=== PATIENT | male | born 1950 | race Caucasian/White ===

== ENCOUNTER 2022-04-07 06:49 | Day surgery (SDC) | payer OTHER ==
[2022-04-04 16:42] LABS: Absolute Lymphocytes (CBC) 2.4 K/uL (0.7-4.9); Hematocrit 46.2 % (39.6-49.0); MCV 83.5 fL (80-100); MPV 6.9 fL (7.6-11.3); RBC Red Blood Cell Count 5.53 M/uL (4.33-5.43)
[2022-04-04 16:47] LABS: Potassium 4.3 mmol/L (3.5-5.1)
[2022-04-04 17:07] LABS: SARS-CoV-2 Antigen Rapid Res Negative (Negative)
--- NOTE | 2022-04-05 17:10 | EKG ---
Test Date: 2022-04-04 Test Time: 15:55:07 Aquatics Specialist: SHARONDA MEASUREMENT RESULTS: Intervals: Rate: 72 CO: 170 QRSD: 84 QT: 390 QTc: 427 [place]: P: 77 CO: 170 QRS: -71 T: 56 INTERPRETIVE STATEMENTS: Normal sinus rhythm Left axis deviation Low voltage QRS Cannot rule out Anterior infarct, age undetermined Abnormal ECG Compared to ECG 04/03/2015 05:47:18 No significant changes Electronically Signed On 04-05-22 17:06:51 CDT by Dong Davis
[2022-04-07] MEDS ORDERED: BUPIVACAINE 0.5% PF 10 ML VIAL ONE (07:09)
[2022-04-07] MEDS ORDERED: CEFAZOLIN SODIUM 1 GM/VIAL ONE (07:21)
[2022-04-07] MEDS ORDERED: Ringers Lactate 1,000 ML IV ONE (07:21)
[2022-04-07] MEDS ORDERED: propofoL 200 MG/20 ML VIAL IV ONE (08:25)
[2022-04-07] MEDS ORDERED: LIDOCAINE 1% MPF 5 ML VIAL ONE (08:25)
[2022-04-07] MEDS ORDERED: MIDAZOLAM HCL 2 MG/2 ML INJ ONE (08:25)
[2022-04-07] MEDS ORDERED: FENTANYL CITR 100 MCG/2 ML ONE ×2 (08:25→08:36)
[2022-04-07] MEDS ORDERED: NS 0.9% VIAL 10 ML ONE (08:44)
[2022-04-07] MEDS ORDERED: ONDANSETRON 4 MG/2 ML VIAL ONE (09:06)
[2022-04-07] MEDS ORDERED: KETOROLAC 30 MG/ML INJ ONE (09:07)
--- NOTE | 2022-04-07 09:35 | P.OP ---
Date of Service: 04/07/22 Preop diagnosis: Bilateral peroneal hidradenitis suppurativa Postop diagnosis: Same Procedure performed: Wide excision left groin hidradenitis suppurativa 10 x 4 cm with layered closure, wide excision right groin hidradenitis suppurativa 10 x 4 cm with layered closure. Surgeon: Zachariah Carroll MD [employer]: CARMENZA Menjivar Estimated blood loss: Minimal Specimen: Bilateral groin hidradenitis suppurativa Findings: As above Anesthesia: General Complications: None Drains: Quarter-inch Yessi drains Fluids and blood products: Nonapplicable Disposition: Recovery room Operative note: Patient brought to the OR and placed in the supine position. General anesthesia begun. Patient placed in the lithotomy position and then pr epped and draped in the usual sterile fashion. Marcaine 0.5% infiltrated in both perineal groin region where hidradenitis suppurativa was present. Then 15 blade was used to make two 10 x 4 cm incisions in both groin region. Subcutaneous tissue divided. All inflamed and indurated tissue excised. Specimen sent to pathology. Wound irrigated bleeding controlled cautery. Flaps created. Quarter inch Ralph drain placed and secured with 3-0 nylon in each wound. 0 chromic used to reapproximate subcutaneous tissue. 3-0 nylon used to close skin. Sterile dressing applied. Patient awakened and taken to recovery room in good general condition. CC:
[2022-04-07] MEDS ORDERED: HYDROCODONE/APAP 7.5/325 MG TAB PO PRN (09:37)
[2022-04-07] MEDS ORDERED: HYDROCODONE/APAP 7.5/325 MG TAB ONE (10:56)
[2022-04-07 11:54] VITALS: BP 127/51; TEMP 97; O2SAT 95
== END 2022-04-07 11:15 | disposition home or self-care (01) ==
LOC: OR 06:49
PROVIDERS: ATTEND Surgery
PROC: 0JBC0ZZ Excision of Pelvic Region Subcutaneous Tissue and Fascia, Open Approach (ICD-10-PCS; principal; 2022-04-07 08:15)
DX: L73.2 Hidradenitis suppurativa (principal); Z20.822 Contact with and (suspected) exposure to COVID-19
CPT/HCPCS: 93005; 85025; 80048; 36415; 88304; 87811; 11462; J2704; J2001; J2250; J3010 ×2; A4216; J7120; J2405; J0690

== ENCOUNTER 2024-05-09 19:16 | Emergency (ER) | payer OTHER ==
--- OUTSIDE RECORDS SUMMARY | 2024-05-09 19:19 | XMS REPORT | Continuity of Care Document ---
Author Name Unknown Address [address] [place] [address] thconnect Address [address] [place] [address] Care Team Providers Care Sales Mgr Name Role Phone Ashleigh Powers Attending Clinician Unavailable Encounters Start Date/Time End Date/Time Encounter Type Admission Type Attending Clinicians Care Facility Care Department Encounter ID Source 2021-08-17 11:22:29 Outpatient Ashleigh Powers [facility] [id number] [facility]
[2024-05-09] MEDS ORDERED: MECLIZINE HCL 12.5 MG TAB ONE (19:41)
[2024-05-09] MEDS ORDERED: AMOX/K CLAV 875 MG TAB ONE (19:42)
--- NOTE | 2024-05-09 20:07 | RAD REPORT ---
EXAM: CT brain without contrast HISTORY: Dizziness COMPARISON: 2014 TECHNIQUE: Multiple contiguous axial images were obtained and a CT of the brain without contrast.. Sagittal and coronal reconstruction performed. Automated exposure control, adjustment of the mA and/or kV according to patient size, and/or iterative reconstruction. Unless otherwise specified, incidental f indings do not require dedicated imaging follow-u FINDINGS: An intracranial bleed is not seen Ventricles are normal caliber No extra-axial fluid collection noted Mild low-density within white matter probably ischemic No fluid within the visualized sinuses or mastoids noted. IMPRESSION: No acute intracranial abnormality noted. If the patient's symptoms persist MRI of the brain would be recommended.
[2024-05-09 20:18] LABS: Absolute Basophils 0.1 K/uL (0-0.5); Absolute Eosinophils 0.1 K/uL (0-0.5); Absolute Monocytes 0.6 K/uL (0.1-1.3); Absolute Neutrophil 8.6 K/uL (1.8-8.0); Basophils % 0.7 % (0-1.3); Eosinophils % 0.6 % (0-4.4); Hematocrit 47.2 % (39.6-49.0); Hemoglobin 15.8 g/dL (13.6-17.9); Lymphocytes % 17.5 % (15.3-44.8); MCH 27.7 pg (27.0-35.0); MCHC 33.5 g/dL (32.0-36.0); MCV 82.6 fL (80-100); MPV 6.6 fL (7.6-11.3); Monocytes % 5.5 % (3.3-12.3); Neutrophils % 75.7 % (41.7-73.7); Nucleated Red Blood Cells % 0.1 % (0-0); Platelets 226 thou/uL (152-406); RBC Red Blood Cell Count 5.71 M/uL (4.33-5.43); Red Cell Distribution Width 15.6 % (12.1-15.2)
[2024-05-09 20:38] LABS: Albumin 3.5 g/dL (3.4-5.0); Albumin/Globulin Ratio 0.8 (1.1-1.8); Anion Gap 6.7 mEq/L (5.0-15.0); Bilirubin Total 0.6 mg/dL (0.2-1.0); Globulin 4.2 g/dL (2.3-3.5); Protein, Total 7.7 g/dL (6.4-8.2); Troponin High Sensitivity 5.3 pg/mL (<58.9)
[2024-05-09 20:39] LABS: Potassium 4.7 mEq/L (3.5-5.1)
--- NOTE | 2024-05-09 21:07 | ER ---
Nurse's Notes [facility] [place], [place] Name: Wesly Jean Age: 74 yrs Sex: Male : 1950 Arrival Date: 05/09/2024 Time: 19:16 Bed 6 Private MD: REGGIE ROUSE Diagnosis: Benign paroxysmal vertigo, bilateral;Acute suppurative otitis media without spontaneous rupture of ear drum, left ear Presentation: 05/09 19:22 Chief complaint: Patient states: started 1 hour ago, dizziness, difficult to hear out tm6 of left ear, left arm hurting slightly. Coronavirus screen: Client denies travel out of the [place] in the last 14 days. Ebola Screen: Patient negative for fever greater than or equal to 101.5 degrees Fahrenheit, and additional compatible Ebola Virus Disease symptoms Patient denies exposure to infectious person. Patient denies travel to an Ebola-affected area in the 21 days before illness onset. No symptoms or risks identified at this time. Initial Sepsis Screen: Does the patient meet any 2 criteria? No. Patient's initial sepsis screen is negative. Does the patient have a suspected source of infection? No. Patient's initial sepsis screen is negative. Risk Assessment: Do you want to hurt yourself or someone else? Patient reports no desire to harm self or others. Onset of symptoms was May 09, 2024 at 18:30. 19:22 Method Of Arrival: Wheelchair tm6 19:22 Acuity: TRISTAN 3 tm6 Triage Assessment: 19:24 General: Appears in no apparent distress. Behavior is calm, cooperative. Pain: tm6 Complains of pain in left arm Pain currently is 1 out of 10 on a pain scale. Pain began 1 hour ago. EENT: Reports cannot hear out of left ear, "feels like a stopper in there". Neuro: Level of Consciousness is awake, alert, obeys commands, Oriented to person, place, time, situation, Reports dizziness, since 1 hour ago. Cardiovascular: Patient's skin is warm and dry. Respiratory: Airway is patent Respiratory effort is even, unlabored, Respiratory pattern is regular, symmetrical. GI: No signs and/or symptoms were reported involving the gastrointestinal system. Abdomen is round non-distended. : No signs and/or symptoms were reported regarding the genitourinary system. Derm: No signs and/or symptoms reported regarding the dermatologic system. Musculoskeletal: Reports pain in left arm since 1 hour ago. Pain is 1 out of 10 on a pain scale. Historical: - Allergies: 19:24 No Known Allergies; tm6 - PMHx: 19:24 None; tm6 - PSHx: 19:24 Cholecystectomy; tm6 - Immunization history:: Client reports receiving the 2nd dose of the Covid vaccine, Flu vaccine is not up to date. - Infectious Disease History:: Denies. - Social history:: Smoking status: Patient reports the use of cigarette tobacco products, smokes two packs cigarettes per day. Patient/guardian denies using alcohol. - Family history:: not pertinent. Screenin:38 [facility] ED Fall Risk Assessment (Adult) History of falling in the last 3 months, tm6 including since admission No falls in past 3 months (0 pts) Confusion or Disorientation No (0 pts) Intoxicated or Sedated No (0 pts) Impaired Gait Yes (1 pt) Mobility Assist Device Used Yes (1 pt) Altered Elimination No (0 pt) Score/Fall Risk Level 0 - 2 = Low Risk Oriented to surroundings, Maintained a safe environment, Educated pt \\T\\ family on fall prevention, incl call for assistance when getting out of bed. Abuse screen: Denies threats or abuse. Denies injuries from another. Nutritional screening: No deficits noted. Tuberculosis screening: No symptoms or risk factors identified. Assessment: 19:38 Reassessment: see triage assessment. tm6 20:43 Reassessment: Patient appears in no apparent distress at this time. Patient and/or vc1 family updated on plan of care and expected duration. Pain level reassessed. Patient is alert, oriented x 3, equal unlabored respirations, skin warm/dry/pink. Patient states feeling better. Patient states symptoms have improved. General: Appears in no apparent distress. comfortable, Behavior is calm, cooperative, appropriate for age. Pain: Complains of pain in left ear. Neuro: Rosen Agitation-Sedation Scale (RASS): 0 - Alert and Calm Level of Consciousness is awake, alert, obeys commands, Denies dizziness. Neuro: Reports dizziness and blurred vision has resolved. Cardiovascular: Heart tones S1 S2 present Capillary refill < 3 seconds Patient's skin is warm and dry. Respiratory: Airway is patent Respiratory effort is even, unlabored, Respiratory pattern is regular, symmetrical, Breath sounds are diminished bilaterally. GI: No deficits noted. No signs and/or symptoms were reported involving the gastrointestinal system. : No deficits noted. No signs and/or symptoms were reported regarding the genitourinary system. EENT: Reports pain in left ear. Derm: Skin is intact, is healthy with good turgor, Skin is dry, Skin is normal, Skin temperature is warm. Musculoskeletal: No deficits noted. No signs and/or symptoms reported regarding the musculoskeletal system. Vital Signs: 19:21 BP 119 / 62; Pulse 75; Resp 19; Temp 97.9(O); Pulse Ox 96% on R/A; MAP 78 mmHg; Weight tm6 95.71 kg; Height 5 ft. 6 in. ; Pain 0/10; 20:45 BP 112 / 56; Pulse 74; Resp 19; Pulse Ox 99% ; vc1 19:21 Body Mass Index 34.06 (95.71 kg, 167.64 cm) tm6 19:21 Pain Scale: Adult tm6 ED Course: 19:17 Patient arrived in ED. am2 19:18 REGGIE ROUSE is Private Physician. am2 19:24 Triage completed. tm6 19:24 Arm band placed on left wrist. tm6 19:37 Tra Keith MD is Attending Physician. rt 19:38 Patient has correct armband on for positive identification. Provided Education on: plan tm6 of care. 19:58 CT Head Brain wo Cont In Process Unspecified. EDMS 20:14 EKG done, by ED staff, reviewed by Tra Keith MD. Inserted saline lock: 20 gauge tm6 in right antecubital area, using aseptic technique. Blood collected. Flushed with 10 mL NS. 20:14 Troponin High Sensitivity Sent. tm6 20:14 CMP Sent. tm6 20:14 CBC with Diff Sent. tm6 20:15 Attending Physician role handed off by Tra Keith MD sp4 20:15 Jonathan Chin MD is Attending Physician. sp4 21:05 Maday Laureano MD is Referral Physician. sp4 21:10 No provider procedures requiring assistance completed. IV discontinued, intact, vc1 bleeding controlled, No redness/swelling at site. Pressure dressing applied. Administered Medications: 19:43 Drug: Meclizine PO 50 mg PO once Route: PO; tm6 20:13 Follow up: Response: No adverse reaction; Marked relief of symptoms vc1 19:43 Drug: Amoxicillin-Clavulanate PO 875 mg PO once Route: PO; tm6 20:13 Follow up: Response: No adverse reaction; Marked relief of symptoms vc1 Medication: 19:38 VIS not applicable for this client. tm6 Outcome: 21:07 Discharge ordered by . sp4 21:12 Patient left the ED. vc1 21:18 Discharged to home ambulatory, with significant other, vc1 21:18 Condition: improved 21:18 Discharge instructions given to patient, Instructed on discharge instructions, follow up and referral plans. medication usage, Demonstrated understanding of instructions, follow-up care, medications, Prescriptions given X 2, Signatures: Dispatcher [employer] Anh Carbajal Vanessa, RN RN vc1 Tra Keith MD MD rt Jonathan Chin MD MD sp4 Danitza Smith RN RN tm6 Corrections: (The following items were deleted from the chart) 19:25 19:24 PSHx: None; tm6 tm6
--- NOTE | 2024-05-09 21:07 | EDPHYS ---
Physician Documentation [facility] Name: Wesly Jean Age: 74 yrs Sex: Male : 1950 Arrival Date: 05/09/2024 Time: 19:16 Bed 6 Private MD: REGGIE ROUSE ED Physician Jonathan Chin HPI: 05/09 20:15 This 74 yrs old Male presents to ER via Wheelchair with complaints of sp4 Dizziness, Arm Pain, Ear Pain. 20:32 Patient presents to the ED with an acute onset of dizziness described as room spinning rt as well as nausea and vomiting and fullness to the left ear starting about an hour prior to arrival. Patient is never had similar symptoms previously. Denies other acute complaints at this time, symptoms are moderate in severity, no other aggravating or alleviating factors.. Historical: - Allergies: 19:24 No Known Allergies; tm6 - PMHx: 19:24 None; tm6 - PSHx: 19:24 Cholecystectomy; tm6 - Immunization history:: Client reports receiving the 2nd dose of the Covid vaccine, Flu vaccine is not up to date. - Infectious Disease History:: Denies. - Social history:: Smoking status: Patient reports the use of cigarette tobacco products, smokes two packs cigarettes per day. Patient/guardian denies using alcohol. - Family history:: not pertinent. ROS: 20:32 Constitutional: Negative for fever, chills, and weight loss, Cardiovascular: Negative rt for chest pain, palpitations, and edema, Respiratory: Negative for shortness of breath, cough, wheezing, and pleuritic chest pain, MS/Extremity: Negative for injury and deformity, Skin: Negative for injury, rash, and discoloration, 20:32 Abdomen/GI: Positive for nausea and vomiting, 20:32 Neuro: Positive for dizziness, Negative for loss of consciousness, Exam: 20:32 Constitutional: This is a well developed, well nourished patient who is awake, alert, rt and in no acute distress. Head/Face: Normocephalic, atraumatic. Chest/axilla: Normal chest wall appearance and motion. Nontender with no deformity. No lesions are appreciated. Cardiovascular: Regular rate and rhythm with a normal S1 and S2. No gallops, murmurs, or rubs. Normal PMI, no JVD. No pulse deficits. Respiratory: Lungs have equal breath sounds bilaterally, clear to auscultation and percussion. No rales, rhonchi or wheezes noted. No increased work of breathing, no retractions or nasal flaring. Abdomen/GI: Soft, non-tender, with normal bowel sounds. No distension or tympany. No guarding or rebound. No evidence of tenderness throughout. Skin: Warm, dry with normal turgor. Normal color with no rashes, no lesions, and no evidence of cellulitis. 20:32 ENT: Bilateral TM effusion with exudate. 20:32 ECG was reviewed by the Attending Physician. 20:32 Neuro: 2-3 beats of left going nystagmus, head impulse and test of skew negative, strength and sensation intact in upper lower extremities, no ataxia. Nose, cranial nerves II through XII intact, speech normal, Vital Signs: 19:21 BP 119 / 62; Pulse 75; Resp 19; Temp 97.9(O); Pulse Ox 96% on R/A; MAP 78 mmHg; Weight tm6 95.71 kg; Height 5 ft. 6 in. ; Pain 0/10; 20:45 BP 112 / 56; Pulse 74; Resp 19; Pulse Ox 99% ; vc1 19:21 Body Mass Index 34.06 (95.71 kg, 167.64 cm) tm6 19:21 Pain Scale: Adult tm6 MDM: 19:37 Medical Screening Exam initiated rt 23:18 Differential diagnosis: generalized weakness, head injury, hyperventilation, sp4 hypovolemia, syncope. Data reviewed: vital signs, nurses notes, lab test result(s), radiologic studies, CT scan. ED course: Patient states his vertigo has resolved. Stable for discharge home. 05/09 19:38 Order name: CBC with Diff; Complete Time: 20:54 rt 05/09 19:38 Order name: CMP; Complete Time: 20:54 rt 05/09 19:38 Order name: Troponin High Sensitivity; Complete Time: 20:54 rt 18 19:38 Order name: CT Head Brain wo Cont; Complete Time: 20:54 rt 18 19:38 Order name: EKG - Nurse/Tech; Complete Time: 20:14 rt EC:32 Rate is 74 beats/min. Rhythm is regular, Sinus Rhythm with No ectopy. Left axis rt deviation noted. UT interval is normal. QRS interval is normal. QT interval is normal. No Q waves. No ST changes noted. Interpreted by me. Administered Medications: 19:43 Drug: Meclizine PO 50 mg PO once Route: PO; tm6 20:13 Follow up: Response: No adverse reaction; Marked relief of symptoms vc1 19:43 Drug: Amoxicillin-Clavulanate PO 875 mg PO once Route: PO; tm6 20:13 Follow up: Response: No adverse reaction; Marked relief of symptoms vc1 Disposition Summary: 05/09/24 21:07 Discharge Ordered Notes: Location: Home sp4 Problem: new sp4 Symptoms: have improved sp4 Condition: Stable sp4 Diagnosis - Benign paroxysmal vertigo, bilateral sp4 - Acute suppurative otitis media without spontaneous rupture of ear drum, left ear sp4 Followup: sp4 - With: Maday Laureano MD - When: 7 - 10 days - Reason: Recheck today's complaints Discharge Instructions: - Discharge Summary Sheet sp4 - Benign Positional Vertigo sp4 Forms: - Patient Portal Instructions sp4 Prescriptions: - Augmentin 875-125 mg Oral Tablet - take 1 tablet ORAL route every 12 hours for 10 days; 20 tablet; Refills: 0, sp4 Product Selection Permitted - Meclizine 25 mg Oral tablet - take 1 tablet ORAL route every 8 hours As needed PRN vertigo; 30 tablet; sp4 Refills: 0, Product Selection Permitted Signatures: Dispatcher [employer] EDMS Tra Keith MD MD rt Jonathan Chin MD MD sp4 Danitza Smith RN RN tm6 Eufemia Baugh RN vc1 Corrections: (The following items were deleted from the chart) 19:25 19:24 PSHx: None; tm6 tm6 19:38 19:38 Head Brain Wo Cont+CT.RAD.BRZ ordered. EDMS EDMS
[2024-05-10 03:06] VITALS: TEMP 97.9
[2024-05-10 03:07] VITALS: BP 112/56; O2SAT 99
--- NOTE | 2024-05-13 13:02 | EKG ---
Test Date: 2024-05-09 Test Time: 20:04:20 Document Image Technician: JOSE MEASUREMENT RESULTS: Intervals: Rate: 74 NV: 168 QRSD: 96 QT: 408 QTc: 452 [place]: P: 10 NV: 168 QRS: -70 T: 19 INTERPRETIVE STATEMENTS: Normal sinus rhythm with sinus arrhythmia Left axis deviation Low voltage QRS Inferior infarct, age undetermined Abnormal ECG Compared to ECG 04/04/2022 15:55:07 No significant changes Electronically Signed On 05-13-24 12:52:56 CDT by Frankie Hope
== END 2024-05-09 21:12 | disposition home or self-care (01) ==
LOC: ER 19:16
DX: H81.13 Benign paroxysmal vertigo, bilateral (principal); H66.002 Acute suppurative otitis media without spontaneous rupture of ear drum, left ear; F17.210 Nicotine dependence, cigarettes, uncomplicated
CPT/HCPCS: 93005; 85025; 36415; 84484; 80053; 70450; 99284; J8597

== ENCOUNTER 2024-08-30 07:53 | Emergency (ER) | payer OTHER ==
--- OUTSIDE RECORDS SUMMARY | 2024-08-30 07:56 | XMS REPORT | Continuity of Care Document ---
Author Name Unknown Address [address] [place] [address] [employer]connect [address] [place] [address] Care Team Providers Care Roll Over Loader Name Role Phone Ashleigh Powers Attending Clinician Unavailable Encounters Start Date/Time End Date/Time Encounter Type Admission Type Attending Clinicians Care Facility Care Department Encounter ID Source 2021-08-17 11:22:29 Outpatient Ashleigh Powers [facility] [id number] [facility]
[2024-08-30] MEDS ORDERED: METHYLPREDNISOLONE 125 MG INJ ONE (08:15)
[2024-08-30] MEDS ORDERED: BENZONATATE 100 MG CAP PO ONE (08:15)
--- NOTE | 2024-08-30 08:27 | RAD REPORT ---
EXAM: Chest Single View HISTORY: COUGH COMPARISON: 06/08/2022 FINDINGS: LUNGS/PLEURA: Linear scarring at the left lung base. MEDIASTINUM: The mediastinal silhouette is within normal limits. CARDIAC: The cardiac silhouette is within normal limits. UPPER ABDOMEN: No significant abnormality. BONES: No acute abnormality. LINES/TUBES/OTHER: N/A IMPRESSION: No evidence of acute cardiopulmonary disease.
[2024-08-30 08:42] LABS: Absolute Lymphocytes (CBC) 0.7 K/uL (0.7-4.9); Absolute Monocytes 0.8 K/uL (0.1-1.3); Absolute Neutrophil 4.6 K/uL (1.8-8.0); Basophils % 0.4 % (0-1.3); Hematocrit 46.1 % (39.6-49.0); Hemoglobin 15.4 g/dL (13.6-17.9); Lymphocytes % 12.1 % (15.3-44.8); MCH 28.2 pg (27.0-35.0); MCHC 33.5 g/dL (32.0-36.0); MCV 84.3 fL (80-100); MPV 6.9 fL (7.6-11.3); Neutrophils % 74.5 % (41.7-73.7); Nucleated Red Blood Cells % 0.3 % (0-0); Platelets 154 thou/uL (152-406); RBC Red Blood Cell Count 5.47 M/uL (4.33-5.43)
[2024-08-30 08:55] LABS: Anion Gap 10.2 mEq/L (5.0-15.0); Potassium 4.2 mEq/L (3.5-5.1)
[2024-08-30 08:58] LABS: SARS-CoV-2 Antigen CONTROL BLUE LINE VIS/BG OK; SARS-CoV-2 Antigen Rapid Res Negative (Negative)
--- NOTE | 2024-08-30 09:26 | EDPHYS ---
Physician Documentation [facility] Name: Wesly Jean Age: 74 yrs Sex: Male : 1950 Arrival Date: 08/30/2024 Time: 07:53 Bed 14 Private MD: ED Physician Kalyan Hall HPI: 08/30 08:11 This 74 yrs old Male presents to ER via Ambulatory with complaints of Flu ec2 Symptoms. 08:11 Patient arrives today for evaluation of upper respiratory symptoms. Patient reports ec2 that he has been having cough and congestion, decreased p.o. intake, diarrhea. Patient reports feeling unwell. Reports that he smokes regularly.. Historical: - Allergies: 08:06 No Known Allergies; ss - Home Meds: 08:06 None [Active]; ss - PMHx: 08:06 "Had diabetes, but that's gone."; ss - PSHx: 08:06 Cholecystectomy; ss - Immunization history:: Adult Immunizations unknown. - Infectious Disease History:: Denies. - Social history:: Smoking status: Patient reports the use of cigarette tobacco products, smokes one pack cigarettes per day. ROS: 08:11 Constitutional: as per hpi ec2 Exam: 08:11 Constitutional: GEN: NAD Head: atraumatic Eyes: EOMI Ears: External ears are ec2 normal. CV: regular rate LUNGS: no respiratory distress no wheezes or rales or rhonchi ABD: non-distended SKIN: no evidence of rashes MSK: no evidence of trauma Vital Signs: 08:03 BP 92 / 70; Pulse 89; Resp 19; Temp 98.8(O); Pulse Ox 90% on R/A; Height 5 ft. 6 in. ; ss 08:45 BP 107 / 70; Pulse 78; Resp 20; Pulse Ox 91% on R/A; ph 09:40 BP 105 / 72; Pulse 76; Resp 18; Temp 98.7; Pulse Ox 92% on R/A; ph MDM: 07:56 Medical Screening Exam initiated ec2 08:11 Data reviewed: vital signs, nurses notes. ED course: Patient arrives today for ec2 evaluation of URI symptoms. Examination is unrevealing. Will obtain lab work, chest x-ray, give the patient medications to help symptomatically get the patient feeling better. Suspect upper respiratory infection, additionally considered other process such as pneumonia, dehydration.. 09:24 ED course: Patient is flu positive. Will treat the patient with Tamiflu given the ec2 patient's comorbidities, reports only a history of diabetes better however he is a heavy smoker.. 02 08:06 Order name: CBC with Diff; Complete Time: 08:54 ec2 02 08:06 Order name: BMP; Complete Time: 09:24 ec2 08 08:06 Order name: Influenza Screen (a \\T\\ B); Complete Time: 09:24 ec2 02 08:06 Order name: SARS RAPID; Complete Time: 09:24 ec2 0208 08:06 Order name: CXR XRAY; Complete Time: 08:29 ec2 08/30 08:06 Order name: IV; Complete Time: 08:49 ec2 Administered Medications: 08:48 Drug: MethylPrednisoLONE IVP 125 mg IVP once Route: IVP; Site: right antecubital; ph 09:40 Follow up: Response: No adverse reaction ph 08:49 Drug: Tessalon Perle PO 200 mg PO once Route: PO; ph 09:39 Follow up: Response: No adverse reaction ph Disposition Summary: 08/30/24 09:25 Discharge Ordered Notes: Location: Home ec2 Condition: Stable ec2 Diagnosis - Influenza due to identified novel influenza A virus ec2 Followup: ec2 - With: Private Physician - When: - Reason: Re-evaluation by your physician Discharge Instructions: - Discharge Summary Sheet ec2 - Influenza, Adult ec2 Forms: - Medication Reconciliation Form ec2 - Antibiotic Education ec2 - Prescription Opioid Use ec2 - Patient Portal Instructions ec2 - Leadership Thank You Letter ec2 Prescriptions: - Tamiflu 75 mg Oral capsule - take 1 tablet ORAL route every 12 hours for 5 days; 10 tablet; Refills: 0, ec2 Product Selection Permitted Signatures: Dispatcher [employer] Cayla Bush RN RN ss Hall, Patricia, RN RN Rafael, MD FRED Biggs ec2 Corrections: (The following items were deleted from the chart) 08:06 08:06 CBC+H.LAB.BRZ ordered. EDMS EDMS 08:06 08:06 BASIC METABOLIC PANEL+C.LAB.BRZ ordered. EDMS EDMS 08:06 08:06 Influenza Screen (A \\T\\ B)+BA.LAB.BRZ ordered. EDMS EDMS 08: 08:06 SARS-COV-2 Antigen Rapid+I.LAB.BRZ ordered. EDMS EDMS 08: 08:06 Chest Single View+RAD.RAD.BRZ ordered. EDMS EDMS
--- NOTE | 2024-08-30 09:26 | ER ---
Nurse's Notes [facility] Name: Wesly Jean Age: 74 yrs Sex: Male : 1950 Arrival Date: 08/30/2024 Time: 07:53 Bed 14 Private MD: Diagnosis: Influenza due to identified novel influenza A virus Presentation: 08/30 08:03 Chief complaint: Patient states: cough, nasal drainage, sore throat and shortness of ss breath that began 2 days ago. Coronavirus screen: Client denies travel out of the [place] in the last 14 days. Ebola Screen: Patient denies exposure to infectious person. Patient denies travel to an Ebola-affected area in the 21 days before illness onset. Initial Sepsis Screen: Does the patient meet any 2 criteria? No. Patient's initial sepsis screen is negative. Does the patient have a suspected source of infection? No. Patient's initial sepsis screen is negative. Risk Assessment: Do you want to hurt yourself or someone else? Patient reports no desire to harm self or others. Onset of symptoms was August 28, 2024. 08:03 Method Of Arrival: Ambulatory ss 08:03 Acuity: TRISTAN 3 ss Historical: - Allergies: 08:06 No Known Allergies; ss - Home Meds: 08:06 None [Active]; ss - PMHx: 08:06 "Had diabetes, but that's gone."; ss - PSHx: 08:06 Cholecystectomy; ss - Immunization history:: Adult Immunizations unknown. - Infectious Disease History:: Denies. - Social history:: Smoking status: Patient reports the use of cigarette tobacco products, smokes one pack cigarettes per day. Screenin:46 [facility] ED Fall Risk Assessment (Adult) History of falling in the last 3 months, ph including since admission No falls in past 3 months (0 pts) Confusion or Disorientation No (0 pts) Intoxicated or Sedated No (0 pts) Impaired Gait No (0 pts) Mobility Assist Device Used No (0 pt) Altered Elimination No (0 pt) Score/Fall Risk Level 0 - 2 = Low Risk Oriented to surroundings, Maintained a safe environment, Hourly rounding (assess needs \\T\\ fall precautionary measures) done. Abuse screen: Denies threats or abuse. Denies injuries from another. Nutritional screening: No deficits noted. Tuberculosis screening: No symptoms or risk factors identified. Assessment: 08:44 General: Appears in no apparent distress. comfortable, Behavior is calm, cooperative. ph Pain: Denies pain. Neuro: Level of Consciousness is awake, alert, obeys commands, Oriented to person, place, time, situation. Cardiovascular: Capillary refill < 3 seconds in bilateral fingers Patient's skin is warm and dry. Respiratory: Reports cough that is Airway is patent Respiratory effort is even, unlabored, Respiratory pattern is regular, symmetrical. GI: Reports diarrhea, Patient currently denies abdominal pain, vomiting. EENT: Reports nasal congestion nasal discharge. Derm: Skin is pink, warm \\T\\ dry. Vital Signs: 08:03 BP 92 / 70; Pulse 89; Resp 19; Temp 98.8(O); Pulse Ox 90% on R/A; Height 5 ft. 6 in. ; ss 08:45 BP 107 / 70; Pulse 78; Resp 20; Pulse Ox 91% on R/A; ph 09:40 BP 105 / 72; Pulse 76; Resp 18; Temp 98.7; Pulse Ox 92% on R/A; ph ED Course: 07:55 Patient arrived in ED. mr 07:56 Kalyan Hall MD is Attending Physician. ec2 08:06 Triage completed. ss 08:06 Franny Degroot, RN is Primary Nurse. ph 08:06 Arm band placed on right wrist. ss 08:23 CXR XRAY In Process Unspecified. EDMS 08:30 Initial lab(s) drawn, by me, sent to lab. COVID swab sent to lab. Flu and/or RSV swab ph sent to lab. Inserted saline lock: 22 gauge in right antecubital area, using aseptic technique. Blood collected. Flushed with 10 mL NS. 08:46 Patient has correct armband on for positive identification. Call light in reach. Side ph rails up X 1. Pulse ox on. NIBP on. Door closed. Noise minimized. 08:49 BMP Sent. ph 08:49 Influenza Screen (a \\T\\ B) Sent. ph 08:49 SARS RAPID Sent. ph 09:40 No provider procedures requiring assistance completed. IV discontinued, intact, ph bleeding controlled, No redness/swelling at site. Pressure dressing applied. Administered Medications: 08:48 Drug: MethylPrednisoLONE IVP 125 mg IVP once Route: IVP; Site: right antecubital; ph 09:40 Follow up: Response: No adverse reaction ph 08:49 Drug: Tessalon Perle PO 200 mg PO once Route: PO; ph 09:39 Follow up: Response: No adverse reaction ph Medication: 08:46 VIS not applicable for this client. ph Outcome: :25 Discharge ordered by . ec2 09:40 Discharged to home ambulatory, ph 09:40 Condition: good :40 Discharge instructions given to patient, Instructed on discharge instructions, follow up and referral plans. medication usage, Demonstrated understanding of instructions, follow-up care, medications, Prescriptions given X 1, :40 Patient left the ED. ph Signatures: Dispatcher [employer] EDLatoya Hoskins, Jorge Alberto Reg mr Cayla Pollard RN RN Franny Degroot RN RN Rafael, Kalyan, MD IBARRA ec2
[2024-08-30 09:46] VITALS: BP 105/72; TEMP 98.7; O2SAT 92
== END 2024-08-30 09:40 | disposition home or self-care (01) ==
LOC: ER 07:53
DX: J10.1 Influenza due to other identified influenza virus with other respiratory manifestations (principal); F17.210 Nicotine dependence, cigarettes, uncomplicated; Z11.52 Encounter for screening for COVID-19
CPT/HCPCS: 85025; 80048; 36415; 87804 ×2; 71045; 96374; 99284; 87811; J2919